=== PATIENT | female | born 1965 | race Caucasian/White ===

== ENCOUNTER 2018-06-04 15:09 | Emergency (ER) | payer BC, OTHER ==
[~2018-06-04] VITALS: Ht 167.6 cm; Wt 70.0 kg
[~2018-06-04 15:09] MED LIST: AMLO5TAB4; HYDR25TA; LISI10TA
[2018-06-04] MEDS ORDERED: SODIUM CHLORIDE 0.9% 1,000 ML IV ONE (16:11)
[2018-06-04] MEDS ORDERED: KETOROLAC 30MG/ML VIAL IV STA (16:11)
[2018-06-04] MEDS ORDERED: ONDANSETRON HCL 4MG/2ML INJ IV STA (16:11)
[2018-06-04] MEDS ORDERED: FAMOTIDINE 20MG/2ML VIAL IV STA (16:11)
[2018-06-04] MEDS ORDERED: LORAZEPAM 2MG/ML CPJ IV ONE (16:45)
[2018-06-04 16:50] LABS: CLARITY URINE CLEAR (CLEAR); COLOR URINE YELLOW (YELLOW); KETONES URINE NEGATIVE (NEGATIVE); LEUKOCYTE ESTERASE URINE NEGATIVE (NEGATIVE); NITRITE URINE NEGATIVE (NEGATIVE); OCCULT BLOOD URINE NEGATIVE (NEGATIVE); PH URINE 6.5 (4.5-8.0); PROTEIN URINE NEGATIVE (NEGATIVE); SPECIFIC GRAVITY URINE 1.006 (1.005-1.030); UROBILINOGEN URINE 0.2 E.U./dL (0.2-1.0)
[2018-06-04 16:55] LABS: BASOPHILS % 0.7 % (0.0-2.0); EOSINOPHILS % 1.1 % (0.0-5.0); HEMATOCRIT. 40.5 % (36.0-48.0); HEMOGLOBIN. 13.7 g/dL (12.0-16.0); LYMPHOCYTES % 24.5 % (20.0-50.0); MEAN CORPUSCULAR VOLUME 97.2 fL (81.0-99.0); MEAN PLATELET VOLUME 8.8 fl (7.4-10.4); MONOCYTES % 9.3 % (2.0-8.0); NEUTROPHILS % 64.4 % (40.0-76.0); PLATELET 315 x1000/uL (130-400); RED BLOOD CELL COUNT 4.17 mill/uL (4.2-5.4); RED CELL DISTRIBUTION WIDTH 14.5 % (11.6-14.6)
[2018-06-04 16:59] LABS: PROTHROMBIN TIME 9.7 sec (9.1-11.1)
[2018-06-04 17:04] LABS: CHLORIDE 104 mEq/L (98-107)
[2018-06-04 17:08] LABS: *AMPHETAMINES SCREEN URINE NEGATIVE (NEGATIVE); *BARBITURATES SCREEN URINE NEGATIVE (NEGATIVE); *BENZODIAZEPINES SCREEN URINE NEGATIVE (NEGATIVE)
[2018-06-04 17:10] LABS: *COCAINE SCREEN URINE NEGATIVE (NEGATIVE); CANNABINOID URINE SCREEN PRESUMTIVE POSITIVE (NEGATIVE); METHADONE URINE SCREEN NEGATIVE (NEGATIVE); OPIATES URINE SCREEN NEGATIVE (NEGATIVE); PHENCYCLIDINE URINE SCREEN NEGATIVE (NEGATIVE)
[2018-06-04 17:11] LABS: ETHANOL BLOOD 269 mg/dL
[2018-06-04] MEDS ORDERED: DEXT 5%/0.45% NACL 1000ML 1,000 ML IV SCH (20:12)
[2018-06-04] MEDS ORDERED: ONDANSETRON HCL 4MG/2ML INJ IV PRN (20:15)
[2018-06-04] MEDS ORDERED: MORPHINE SULFATE 4 MG/ML CPJ (NOT FOR IM USE) IV PRN (20:15)
[2018-06-05 05:17] LABS: BASOPHILS % 0.5 % (0.0-2.0); EOSINOPHILS % 0.8 % (0.0-5.0); HEMATOCRIT. 37.2 % (36.0-48.0); HEMOGLOBIN. 12.7 g/dL (12.0-16.0); LYMPHOCYTES % 23.2 % (20.0-50.0); MEAN CORPUSCULAR VOLUME 96.9 fL (81.0-99.0); MEAN PLATELET VOLUME 8.8 fl (7.4-10.4); MONOCYTES % 9.5 % (2.0-8.0); PLATELET 268 x1000/uL (130-400); RED BLOOD CELL COUNT 3.84 mill/uL (4.2-5.4); RED CELL DISTRIBUTION WIDTH 14.5 % (11.6-14.6)
[2018-06-05 05:26] LABS: CHLORIDE 106 mEq/L (98-107)
[2018-06-05 09:15] VITALS: BP 117/83
== END 2018-06-05 09:48 | disposition left against medical advice (07) ==
LOC: ER 15:49 → EDBEDREQ 19:16 → CANRESERV 06-05 08:42 → ENRESERV 06-05 08:42 → ER 06-05 09:48 → CANBEDREQ 06-05 15:58
DX: T14.91XA Suicide attempt, initial encounter (principal); F31.9 Bipolar disorder, unspecified; F10.129 Alcohol abuse with intoxication, unspecified; K85.90 Acute pancreatitis without necrosis or infection, unspecified; E78.00 Pure hypercholesterolemia, unspecified; Z79.899 Other long term (current) drug therapy; X83.8XXA Intentional self-harm by other specified means, initial encounter; Y93.89 Activity, other specified; Y92.89 Other specified places as the place of occurrence of the external cause; Y99.8 Other external cause status; Y90.8 Blood alcohol level of 240 mg/100 ml or more
CPT/HCPCS: 36415; 76705; 80053; 80305; 80307; 80329; 81003; 83690; 85025; 85610; 96361; 96374; 96375; 96376; 99285; G0482; J1885; J2405; J3490; J7030